=== PATIENT | female | born 1945 | race Hispanic/Latino ===

== ENCOUNTER 2017-08-15 08:16 | Inpatient (IN) | payer MEDICARE, BC ==
[2017-08-15 08:20] VITALS: BMI 18.3
[2017-08-15] MEDS ORDERED: Sodium Chloride 0.9% 1,000 ML IV STA ×3 (08:56→19:26)
[2017-08-15 09:36] LABS: BASO # 0.04 K/mm3 (0.0-2.0); BASO % 0.5 % (0.0-3.0); EOS # 0.1 (0.0-0.7); EOS % 0.8 % (1.5-5.0); GRAN # 5.88 (1.4-6.5); HEMATOCRIT 33.4 % (36.0-48.0); LYMPH # 1.8 (1.2-3.4); LYMPH % 20.9 % (22.0-35.0); MEAN CELL VOLUME 81.3 fl (80.0-105.0); MEAN CORPUSCULAR HGB CONC 33.2 g/dl (31.0-37.0); MEAN PLATELET VOLUME 10.4 fl (7.0-11.0); MONO # 0.9 (0.1-0.6); MONO % 9.8 % (1.0-6.0); RED CELL DISTRIBUTION WIDTH 15.6 % (11.5-14.5); WHITE BLOOD COUNT 8.7 10^3/ul (4.5-11.0)
[2017-08-15 09:46] LABS: ALB/GLOB RATIO 1.3 (1.1-1.8); ALKALINE PHOSPHATASE 123 U/L (38-126); ALT/SGPT 35 U/L (7-56); AST/SGOT 36 U/L (14-36); BILIRUBIN,TOTAL 0.3 mg/dL (0.2-1.3); BLOOD UREA NITROGEN 37 mg/dL (7-21); CARBON DIOXIDE 12 mmol/L (21-33); CHLORIDE 107 mmol/L (98-107); GFR AFRICAN-AMERICAN > 60; GLUCOSE,RANDOM 79 mg/dL (70-110); INR 1.12 (0.93-1.08); PARTIAL THROMBOPLASTIN TIME 27.8 Seconds (23.7-30.8); POTASSIUM 3.7 mmol/L (3.6-5.0); SODIUM 134 mmol/L (132-148); TOTAL PROTEIN 5.6 g/dL (5.8-8.3)
--- NOTE | 2017-08-15 09:50 | ED PDOC ---
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 Pt presented with n/v and diarrhea from cruise ship. States she has a hx of motion sickness and her n/v fully resolved on shore. Denies any diarrhea at this time. pt states she feels well and has no n/v/d or abd pain at this time. Denies any chest pain. Denies headache symptoms. Pt states that her symptoms were identical to previous motion symptoms she's had numerous times in the past. Past Medical History - Provider Review Nursing Documentation Reviewed: Yes - Infectious Disease Hx of Infectious Diseases: None - Neurological Other/Comment: Neuropathy - Hematological/Oncological Other/Comment: lymphedema - Integumentary Hx Squamous Cell Carcinoma: Yes - Musculoskeletal/Rheumatological Hx Falls: Yes - Gastrointestinal Hx Diarrhea: Yes Other/Comment: Bowel Obstruction Hx. Bowel Incontinence. TPN - Genitourinary/Gynecological Other/Comment: Pelvis CA Hx - Psychiatric Hx Substance Use: No - Surgical History Hx Tonsillectomy: Yes Other/Comment: Right Picc line. Radiation and Chemo Hx Family/Social History Family/Social History: Unknown Family HX Smoking Status: Never Smoked Hx Alcohol Use: No Hx Substance Use: No Allergies/Home Meds Allergies/Adverse Reactions: Allergies gabapentin Allergy (Verified 08/15/17 08:40) ANAPHYLAXIS Penicillins Allergy (Verified 08/15/17 08:40) RASH Narcotics Allergy (Uncoded 08/15/17 08:40) VOMITING Pt states she is allergic to all narcotics. Sulfa Allergy (Uncoded 08/15/17 08:40) URTICARIA Home Medications: Home Meds Medication Instructions Recorded Confirmed Famotidine [Pepcid] 20 mg PO DAILY 08/15/17 08/15/17 Ferrous Sulfate [Feosol] 325 mg PO DAILY 08/15/17 08/15/17 Levothyroxine [Synthroid] 25 mcg PO DAILY 08/15/17 08/15/17 Loperamide HCl [Loperamide HCl] 2 mg PO Q3 PRN 08/15/17 08/15/17 Ondansetron [Zofran] 8 mg PO Q6 PRN 08/15/17 08/15/17 Pantoprazole [Protonix EC Tab] 40 mg PO BID 08/15/17 08/15/17 Promethazine [Phenergan Tab] 25 mg PO Q6 PRN 08/15/17 08/15/17 Total Parental Nutrition [TPN 1,750 ml IV Q12 08/15/17 08/15/17 Fluid] Vitamin A 25,000 iu PO DAILY 08/15/17 08/15/17 Physical Exam - Physical Exam Narrative Physical Exam (Text): 08/15/17 09:50 - Review of Systems Constitutional: Normal. absent: Fatigue, Weight Change, Fevers Eyes: Normal ENT: denies sore throat, denies tristhmus Respiratory: Normal. absent: SOB, Cough, Sputum Cardiovascular: absent: Chest Pain, Palpitations, Syncope Gastrointestinal: Abdominal Pain, Diarrhea, Nausea, Vomiting - all resolved Genitourinary: Normal. absent: Dysuria, Frequency, Hematuria, vaginal bleeding Musculoskeletal: Normal. absent: Arthralgias, Back Pain, Neck Pain Skin: no rashes, no erythema Neurological: absent: Focal Weakness Endocrine: Normal Hemo/Lymphatic: Normal Psychiatric: No suicidal or homicidal ideations Physical exam Patient appears age appropriate in no distress, speaking full sentences without difficulty - Systems Exam Head: Present: Atraumatic, Normocephalic Pupils: Present: PERRL Extroacular Muscles: Present: EOMI Conjunctiva: Present: Normal Mouth: Present: Moist Mucous Membranes Neck: Present: Normal Range of Motion. No: MIDLINE TENDERNESS, Paraspinal Tenderness Respiratory/Chest: Present: Clear to Auscultation, Good Air Exchange. No: Respiratory Distress, Accessory Muscle Use, Tachypneic Cardiovascular: Present: Regular Rate and Rhythm, Normal S1, S2, Peripheal Pulses Present. No: Murmurs Abdomen: Present: Normal Bowel Sounds. No: Tenderness, Distention, Peritoneal Signs, Rebound, Guarding Back: Present: Normal Inspection. No: Midline Tenderness, Paraspinal Tenderness Upper Extremity: Present: Normal Inspection. No: Cyanosis, Edema Lower Extremity: Present: Normal Inspection. No: Edema Neurological: Present: GCS=15, Speech Normal, cranial nerves II through XII fully intact with no cerebellar abnormality, neurosensory fully intact. No focal neurological deficits. Skin: Present: Warm, Dry, Normal Color. No: Rashes Lymphatic: Present: OX3, NI, NC Psychiatric: Present: Alert, Oriented x 3, Normal Insight, Normal Concentration Vital Signs Reviewed: Yes Vital Signs Temp Pulse Resp BP Pulse Ox 08/15/17 12:13 97.9 F 77 17 109/62 96 08/15/17 08:20 97.6 F 88 18 116/66 100 Temperature: Afebrile Blood Pressure: Normal Pulse: Regular Respiratory Rate: Normal Appearance: Positive for: Well-Appearing Pain Distress: None Mental Status: Positive for: Alert and Oriented X 3 Medical Decision Making ED Course and Treatment: 08/15/17 09:51 Ship records reviewed: pt was found to be hypokalemic, KCl supplemented abd was tender, concern for bowel obstruction pt was tachy, refused EKG labs, imaging, ekg ordered EKG shows normal sinus 80bom, no st-elevations, normal intervals. Interpreted by me. abd soft/nt/nd with pos. bs in all 4 q's and no peritoneal signs pt has no focal neurological deficits denies any cp/sob/richter, states she never had those symptoms based on hx and pe, no suspicion for symptoms to be of cardiac etiology 08/15/17 14:[address]: Dictated by: Dr. Shonda Dao IMPRESSION: Acute small-bowel obstruction with transition zone likely in the distal ileal loops. No evidence of perforation or free fluid in the peritoneal cavity. 11 mm nonobstructing stone in the lower pole of the left kidney. 08/15/17 14:55 pt states she has no abd pain, no n/v, states she's had SBO in the past and this is not what her symptoms feel like asked not to have NTG inserted pt agreeable to admission to the hospital Dr. Cardenas bedside Dr. Corey redmond, awaiting callback 08/15/17 15:15 argenis Nicole, accepted pt to his service, Mary Jack and Ronald on consult pt aware of and agrees with plan Dr. Cardenas asked to start on clear liq. diet - Lab Interpretations Lab Results: 08/15/17 09:31 08/15/17 09:31 Lab Results 08/15/17 09:31: Sodium 134, Potassium 3.7, Chloride 107, Carbon Dioxide 12 L, Anion Gap 19, BUN 37 H, Creatinine 1.0, Est GFR ( Amer) > 60, Est GFR ( Non-Af Amer) 54, Random Glucose 79, Calcium 5.9 L*, Total Bilirubin 0.3, AST 36 , ALT 35, Alkaline Phosphatase 123, Total Protein 5.6 L, Albumin 3.2, Globulin 2.4, Albumin/Globulin Ratio 1.3 08/15/17 09:31: PT 12.1 H, INR 1.12 H, APTT 27.8 08/15/17 09:31: WBC 8.7, RBC 4.11, Hgb 11.1 L, Hct 33.4 L, MCV 81.3, MCH 27.0, MCHC 33.2, RDW 15.6 H, Plt Count 168, MPV 10.4, Gran % 68.0, Lymph % (Auto) 20.9 L, Terrell % (Auto) 9.8 H, Eos % (Auto) 0.8 L, Baso % (Auto) 0.5, Gran # 5.88 , Lymph # 1.8, Terrell # 0.9 H, Eos # 0.1, Baso # 0.04 I have reviewed the lab results: Yes - RAD Interpretation Radiology Orders: 08/15/17 08:54 ABDOMEN MULTIPLE VIEW (w/OBL) [RAD] Stat 08/15/17 12:46 ABD & PELVIS W/O PO OR IV CONT [CT] Stat - Medication Orders Current Medication Orders: Discontinued Medications Sodium Chloride (Sodium Chloride 0.9%) 1,000 mls @ 1,000 mls/hr IV .Q1H STA Stop: 08/15/17 09:55 Last Admin: 08/15/17 09:16 Dose: 1,000 mls/hr eMAR Start Stop Document 08/15/17 09:16 RR (Rec: 08/15/17 09:16 RR [id number]) Intravenous Solution Start Date 08/15/17 Start Time 09:16 End Date 08/15/17 End time 10:16 Total Infusion Time 60 Disposition/Present on Arrival - Present on Arrival Any Indicators Present on Arrival: No History of DVT/PE: No History of Uncontrolled Diabetes: No Urinary Catheter: No History of Decub. Ulcer: No History Surgical Site Infection Following: None - Disposition Have Diagnosis and Disposition been Completed?: Yes Diagnosis: Small bowel obstruction Disposition: HOSPITALIZED Disposition Time: 15:17 Patient Plan: Admission Condition: FAIR Forms: [employer] (Mal[place]ian)
[2017-08-15 09:53] LABS: CALCIUM 5.9 mg/dL (8.4-10.5)
--- NOTE | 2017-08-15 11:23 | RAD ---
HISTORY: abd pain, hx of ilius COMPARISON: No prior. FINDINGS: BOWEL: There is cases distension of the small bowel loops. Gas filled colon and rectum are normal in caliber. No free intraperitoneal air on left lateral decubitus film. BONES: There is an old deformity in the left hip. There is diffuse bone demineralization. OTHER FINDINGS: None. IMPRESSION: Gaseous distension of the small bowel. Findings could be related to ileus or obstruction. Follow-up is advised.
--- NOTE | 2017-08-15 14:23 | CT ---
PROCEDURE: CT Abdomen and Pelvis without intravenous contrast HISTORY: ro obastruction COMPARISON: None. TECHNIQUE: CT scan of the abdomen and pelvis was performed without administration of intravenous contrast. Oral contrast was not administered. Coronal and sagittal reformatted images were obtained. Radiation dose: Total exam DLP = 181.78 MGy-cm. This CT exam was performed using one or more of the following dose reduction techniques: Automated exposure control, adjustment of the mA and/or kV according to patient size, and/or use of iterative reconstruction technique. FINDINGS: LOWER THORAX: There are bullous changes in the right middle lobe. The lung bases are clear. LIVER: Normal in size. No gross lesion or ductal dilatation. GALLBLADDER AND BILE DUCTS: Surgically absent. PANCREAS: Mild diffuse atrophy. No gross lesion or ductal dilatation. SPLEEN: Normal in size. ADRENALS: No discrete nodule. KIDNEYS AND URETERS: There is mild cortical atrophy in the kidneys. There is a 11 mm nonobstructing stone in the left lower pole. VASCULATURE: No aortic aneurysm. BOWEL: There is severe dilatation of fluid-filled proximal and mid small bowel loops measuring up to 8 cm in transverse diameter. The distal small bowel loops are normal in caliber. The terminal ileum and ileocecal junction appear normal. However no definite transition zone is identified. The colon is unremarkable. APPENDIX: No inflammatory changes in the right lower quadrant pacs. PERITONEUM: No free fluid. No free air. LYMPH NODES: Unremarkable. BLADDER: Grossly normal in appearance. REPRODUCTIVE: Unremarkable. BONES: No acute fracture. Diffuse bone demineralization. OTHER FINDINGS: None. IMPRESSION: Acute small-bowel obstruction with transition zone likely in the distal ileal loops. No evidence of perforation or free fluid in the peritoneal cavity. 11 mm nonobstructing stone in the lower pole of the left kidney.
[2017-08-15 15:57] VITALS: RESP 18
--- NOTE | 2017-08-15 19:23 | CARD ---
APPROVED REPORT EKG Measurement Heart [id number] [id number] <Conclusion> Sinus rhythm with premature atrial complexes Inferior infarct, age undetermined Anterior infarct, age undetermined Abnormal ECG
--- NOTE | 2017-08-15 19:26 | CARD ---
APPROVED REPORT EKG Measurement Heart [id number] <Conclusion> Sinus rhythm with premature atrial complexes Inferior infarct, age undetermined Anterior infarct, age undetermined Abnormal ECG
--- NOTE | 2017-08-15 20:48 | CP.PCM.CON ---
History of Present Illness - History of Present Illness History of Present Illness: Surgery: Dr. Cardenas CC: Nausea / Vomiting / Diarrhea HPI: 72F w. hx of pelvic CA, radiation enteritis, SBOs, malnutrition requiring TPN, and motion sickness presents to ED from cruise ship with N/V/D. Pt states that she attributes her symptoms to motion sickness. Pt's symptoms completely resolved after arriving to shore. However, she states that the ship doctor recommended that she come to hospital for concerns of SBO given abd tenderness. In ED CT was done which showed dilated loops of bowel concerning for SBO. Pt is currently asymptomatic. She has no complaints of pain. She is tolerating diet, no N/V. She does have intermittent diarrhea, however she states that this is chronic. 12 ROS performed and negative unless specified PMH: osteoperosis, pelvic CA, SBOs, radiation enteritis, motion sickness PSH: gallbladder, tonsils Meds: MAR reviewed ALL: PCN, sulfa, narcotics, cipro, gabapentin Social: No Tobacco/drugs, social ETOH Fhx: Non-contributory Past Patient History - Infectious Disease Hx of Infectious Diseases: None - Past Social History Smoking Status: Never Smoked - CARDIAC Hx Cardiac Disorders: No - PULMONARY Hx Respiratory Disorders: No - NEUROLOGICAL Hx Neurological Disorder: No - HEENT Hx HEENT Problems: No - RENAL Hx Chronic Kidney Disease: No - ENDOCRINE/METABOLIC Hx Endocrine Disorders: No - HEMATOLOGICAL/ONCOLOGICAL Hx Cancer: Yes - INTEGUMENTARY Hx Dermatological Problems: No - MUSCULOSKELETAL/RHEUMATOLOGICAL Hx Musculoskeletal Disorders: No Hx Falls: No - GASTROINTESTINAL Hx Gastrointestinal Disorders: No - GENITOURINARY/GYNECOLOGICAL Hx Genitourinary Disorders: No - PSYCHIATRIC Hx Psychophysiologic Disorder: No - SURGICAL HISTORY Hx Surgeries: No Meds Allergies/Adverse Reactions: Allergies Allergy/AdvReac Type Severity Reaction Status Date / Time gabapentin Allergy ANAPHYLAXIS Verified 08/15/17 08:40 Penicillins Allergy RASH Verified 08/15/17 08:40 Narcotics Allergy VOMITING Uncoded 08/15/17 08:40 Sulfa Allergy URTICARIA Uncoded 08/15/17 08:40 - Medications Medications: Current Medications Calcium/Vitamin D (Oscal-D 250 Mg-125 Units Tab) 1 tab PO DAILY [facility] Famotidine (Pepcid) 20 mg PO DAILY [facility] Sodium Chloride (Sodium Chloride 0.9%) 1,000 mls @ 60 mls/hr IV .[id number] STA Stop: 08/16/17 07:56 Levothyroxine Sodium (Synthroid) 25 mcg PO DAILY [facility] Ondansetron HCl (Zofran Inj) 4 mg IVP Q4H PRN PRN Reason: Nausea/Vomiting Pantoprazole Sodium (Protonix Ec Tab) 40 mg PO BID [facility] Promethazine HCl (Phenergan Tab) 25 mg PO Q6 PRN PRN Reason: Nausea/Vomiting Physical Exam - Constitutional Appears: Non-toxic, No Acute Distress - Head Exam Head Exam: ATRAUMATIC, NORMOCEPHALIC - Eye Exam Eye Exam: EOMI. absent: Scleral icterus - ENT Exam ENT Exam: Mucous Membranes Moist, Normal External Ear Exam - Neck Exam Neck exam: Positive for: Full Rom - Respiratory Exam Respiratory Exam: NORMAL BREATHING PATTERN. absent: Accessory Muscle Use, Respiratory Distress - Cardiovascular Exam Cardiovascular Exam: REGULAR RHYTHM, +S1, +S2 - GI/Abdominal Exam GI & Abdominal Exam: Distended (lower abd), Soft. absent: Firm, Guarding, Rebound, Rigid, Tenderness - Extremities Exam Extremities exam: Negative for: calf tenderness, pedal edema - Neurological Exam Neurological exam: Alert, Oriented x3 - Psychiatric Exam Psychiatric exam: Normal Affect, Normal Mood - Skin Skin Exam: Dry, Normal Color, Warm Results - Vital Signs Recent Vital Signs: Last Vital Signs Temp 97.6 F 08/15/17 18:29 Pulse 64 08/15/17 18:29 Resp 18 08/15/17 18:29 BP 109/62 08/15/17 18:29 Pulse Ox 100 08/15/17 18:29 - Labs Result Diagrams: 08/15/17 09:31 08/15/17 09:31 - Imaging and Cardiology CT scan - abdomen Status: Image reviewed by me, Report reviewed by me Assessment & Plan - Assessment and Plan (Free Text) Assessment: 72F w. N/V/D likely 2/2 motion sickness, currently resolved, with CT findings concerning for SBO, asymptomatic -serial abd exams -advance diet as tolerated -no plans for surgical intervention -clear from surgical standpoint when regular diet tolerated -d/w attending Zetheronitis PGY3
[2017-08-15] MEDS: Pantoprazole 20 mg EC Tab PO SCH (22:13)
[2017-08-16 07:20] LABS: BASO # 0.03 K/mm3 (0.0-2.0); BASO % 0.5 % (0.0-3.0); EOS # 0.1 (0.0-0.7); EOS % 1.8 % (1.5-5.0); GRAN # 3.98 (1.4-6.5); GRAN % 71.9 % (50.0-68.0); LYMPH # 0.9 (1.2-3.4); LYMPH % 16.4 % (22.0-35.0); MEAN CELL VOLUME 81.4 fl (80.0-105.0); MEAN CORPUSCULAR HEMOGLOBIN 26.5 pg (25.0-35.0); MEAN CORPUSCULAR HGB CONC 32.5 g/dl (31.0-37.0); MEAN PLATELET VOLUME 9.6 fl (7.0-11.0); MONO # 0.5 (0.1-0.6); MONO % 9.4 % (1.0-6.0); RED CELL DISTRIBUTION WIDTH 15.6 % (11.5-14.5); WHITE BLOOD COUNT 5.5 10^3/ul (4.5-11.0)
[2017-08-16 07:36] LABS: ALB/GLOB RATIO 1.1 (1.1-1.8); ALKALINE PHOSPHATASE 101 U/L (38-126); ALT/SGPT 36 U/L (7-56); AST/SGOT 23 U/L (14-36); BILIRUBIN,TOTAL 0.1 mg/dL (0.2-1.3); BLOOD UREA NITROGEN 20 mg/dL (7-21); CARBON DIOXIDE 14 mmol/L (21-33); CHLORIDE 113 mmol/L (98-107); GFR AFRICAN-AMERICAN > 60; GLUCOSE,RANDOM 76 mg/dL (70-110); POTASSIUM 3.1 mmol/L (3.6-5.0); SODIUM 139 mmol/L (132-148); TOTAL PROTEIN 4.5 g/dL (5.8-8.3)
[2017-08-16 07:50] LABS: FREE T4 1.21 ng/dL (0.78-2.19)
--- NOTE | 2017-08-16 07:53 | CP.PCM.PN ---
Subjective - Date & Time of Evaluation Date of Evaluation: 08/16/17 Time of Evaluation: 07:48 - Subjective Subjective: Surgery: Dr. Cardenas Pt seen and examined. Resting comfortably in bed. Symptoms completely resolved. Pt eager to go home. Objective - Vital Signs/Intake and Output Vital Signs (last 24 hours): Temp Pulse Resp BP Pulse Ox 97.6 F 64 18 109/62 100 08/15/17 18:29 08/15/17 18:29 08/15/17 18:29 08/15/17 18:29 08/15/17 18:29 - Medications Medications: Current Medications Calcium/Vitamin D (Oscal-D 250 Mg-125 Units Tab) 1 tab PO DAILY [facility] Famotidine (Pepcid) 20 mg PO DAILY [facility] Sodium Chloride (Sodium Chloride 0.9%) 1,000 mls @ 60 mls/hr IV .[id number] STA Stop: 08/16/17 07:56 Levothyroxine Sodium (Synthroid) 25 mcg PO DAILY [facility] Ondansetron HCl (Zofran Inj) 4 mg IVP Q4H PRN PRN Reason: Nausea/Vomiting Pantoprazole Sodium (Protonix Ec Tab) 40 mg PO BID [facility] Last Admin: 08/15/17 22:13 Dose: 40 mg Promethazine HCl (Phenergan Tab) 25 mg PO Q6 PRN PRN Reason: Nausea/Vomiting - Labs Labs: 08/16/17 07:10 PT 12.1 Seconds (9.9-11.8) H 08/15/17 09:31 INR 1.12 (0.93-1.08) H 08/15/17 09:31 APTT 27.8 Seconds (23.7-30.8) 08/15/17 09:31 - Constitutional Appears: Non-toxic, No Acute Distress - Head Exam Head Exam: ATRAUMATIC, NORMOCEPHALIC - Eye Exam Eye Exam: EOMI. absent: Scleral icterus - ENT Exam ENT Exam: Mucous Membranes Moist - Neck Exam Neck Exam: Full ROM - Respiratory Exam Respiratory Exam: NORMAL BREATHING PATTERN. absent: Accessory Muscle Use, Respiratory Distress - GI/Abdominal Exam GI & Abdominal Exam: Soft. absent: Distended, Firm, Guarding, Rigid, Tenderness , Rebound - Extremities Exam Extremities Exam: absent: Calf Tenderness, Pedal Edema - Neurological Exam Neurological Exam: Alert, Awake, Oriented x3 - Psychiatric Exam Psychiatric exam: Normal Affect, Normal Mood - Skin Skin Exam: Dry, Normal Color, Warm Assessment and Plan - Assessment and Plan (Free Text) Assessment: 72F w. N/V/D 2/2 motion sickness, and CT concerning for SBO, symptoms completely resolved -Advance diet as tolerated -Pt clear for D/C from surgical standpoint when regular diet tolerated -will d/w attending Zemaitis PGY3
--- NOTE | 2017-08-16 08:03 | CP.PCM.CON ---
History of Present Illness - History of Present Illness History of Present Illness: Asked by Dr. Nicole for a GI consultation on this patient. 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 By the time patient arrived at hospital the majority of her symptoms had resolved. She is seen currently resting in bed and appears comfortable. She denies abdominal pain, nausea, recurrent vomiting, fever/chills, or weight loss. She has chronic diarrhea over the past several years which is controlled by Immodium. She has had 2 loose bowel movements since arrival to hospital. She follows with a GI physician in [place] where she lives and had an attempted colonoscopy in 2003 but was incomplete due to apparent sigmoid stricture. Social history: non-smoker, social ETOH use Family history: mother (colon cancer diagnosed age 73) Review of Systems - Review of Systems Review of Systems: - All other comprehensive 12 point review of systems performed, negative - Cardiovascular Cardiovascular: absent: Acrocyanosis, Chest Pain, Chest Pain at Rest, Chest Pain with Activity, Claudication, Diaphoresis, Dyspnea, Dyspnea on Exertion, Edema, Irregular Heart Rhythm, Pain Radiating to Arm/Neck/Jaw, Leg Edema, Leg Ulcers, Lightheadedness, Orthopnea, Palpitations, Paroxysmal Nocturnal Dyspnea, Pedal Edema, Radiating Pain, Rapid Heart Rate, Slow Heart Rate, Syncope, Other - Respiratory Respiratory: absent: Cough, Dyspnea, Hemoptysis, Dyspnea on Exertion, Wheezing, Snoring, Stridor, Pain on Inspiration, Chest Congestion, Excessive Mucous Production, Change in Mucous Color, Pain with Coughing, Other - Gastrointestinal Gastrointestinal: Diarrhea - Musculoskeletal Musculoskeletal: absent: Abnormal Gait, Arthralgias, Atrophy, Back Pain, Deformity, Joint Swelling, Limited Range of Motion, Loss of Height, Muscle Cramps, Muscle Weakness, Myalgias, Neck Pain, Numbness, Radiating Pain into Limb , Stiffness, Tingling, Other - Neurological Neurological: absent: Abnormal Gait, Abnormal Hearing, Abnormal Movements, Abnormal Speech, Behavioral Changes, Burning Sensations, Confusion, Convulsions , Disequilibrium, Dizziness, Numbness, Focal Weakness, Frequent Falls, Headaches , Lack of Coordination, Loss of Vision, Memory Loss, Paresthesias, Radicular Pain, Restless Legs, Sensory Deficit, Syncope, Tingling, Tremor, Vertigo, Weakness, Other Visual Disturbances, Other Past Patient History - Infectious Disease Hx of Infectious Diseases: None - Past Social History Smoking Status: Never Smoked - CARDIAC Hx Cardiac Disorders: No - PULMONARY Hx Respiratory Disorders: No - NEUROLOGICAL Hx Neurological Disorder: No - HEENT Hx HEENT Problems: No - RENAL Hx Chronic Kidney Disease: No - ENDOCRINE/METABOLIC Hx Endocrine Disorders: No - HEMATOLOGICAL/ONCOLOGICAL Hx Cancer: Yes - INTEGUMENTARY Hx Dermatological Problems: No - MUSCULOSKELETAL/RHEUMATOLOGICAL Hx Musculoskeletal Disorders: No Hx Falls: No - GASTROINTESTINAL Hx Gastrointestinal Disorders: No - GENITOURINARY/GYNECOLOGICAL Hx Genitourinary Disorders: No - PSYCHIATRIC Hx Psychophysiologic Disorder: No - SURGICAL HISTORY Hx Surgeries: No Meds Allergies/Adverse Reactions: Allergies Allergy/AdvReac Type Severity Reaction Status Date / Time gabapentin Allergy ANAPHYLAXIS Verified 08/15/17 08:40 Penicillins Allergy RASH Verified 08/15/17 08:40 Narcotics Allergy VOMITING Uncoded 08/15/17 08:40 Sulfa Allergy URTICARIA Uncoded 08/15/17 08:40 - Medications Medications: Current Medications Calcium/Vitamin D (Oscal-D 250 Mg-125 Units Tab) 1 tab PO DAILY [facility] Famotidine (Pepcid) 20 mg PO DAILY [facility] Sodium Chloride (Sodium Chloride 0.9%) 1,000 mls @ 60 mls/hr IV .[id number] STA Stop: 08/16/17 07:56 Levothyroxine Sodium (Synthroid) 25 mcg PO DAILY [facility] Ondansetron HCl (Zofran Inj) 4 mg IVP Q4H PRN PRN Reason: Nausea/Vomiting Pantoprazole Sodium (Protonix Ec Tab) 40 mg PO BID [facility] Last Admin: 08/15/17 22:13 Dose: 40 mg Promethazine HCl (Phenergan Tab) 25 mg PO Q6 PRN PRN Reason: Nausea/Vomiting Physical Exam - Constitutional Appears: Non-toxic, No Acute Distress - Head Exam Head Exam: NORMAL INSPECTION - Eye Exam Eye Exam: EOMI, Normal appearance - ENT Exam ENT Exam: Mucous Membranes Moist - Respiratory Exam Respiratory Exam: Clear to Auscultation Bilateral Additional comments: PICC line - Cardiovascular Exam Cardiovascular Exam: REGULAR RHYTHM, +S1, +S2 - GI/Abdominal Exam GI & Abdominal Exam: Normal Bowel Sounds, Soft Additional comments: non tender to palpation in four quadrants no palpable hepato/splenomegaly - Extremities Exam Extremities exam: Positive for: normal inspection - Neurological Exam Neurological exam: Alert, CN II-XII Intact, Oriented x3, Reflexes Normal - Psychiatric Exam Psychiatric exam: Normal Affect, Normal Mood - Skin Skin Exam: Dry, Intact, Normal Color, Warm Results - Vital Signs Recent Vital Signs: Last Vital Signs Temp 97.6 F 08/15/17 18:29 Pulse 64 08/15/17 18:29 Resp 18 08/15/17 18:29 BP 109/62 08/15/17 18:29 Pulse Ox 100 08/15/17 18:29 - Labs Result Diagrams: 08/16/17 07:10 08/15/17 09:31 Labs: Laboratory Results - last 24 hr 08/16/17 07:10 WBC 5.5 D RBC 3.44 L Hgb 9.1 L D Hct 28.0 L MCV 81.4 MCH 26.5 MCHC 32.5 RDW 15.6 H Plt Count 147 MPV 9.6 Gran % 71.9 H Lymph % (Auto) 16.4 L Wells % (Auto) 9.4 H Eos % (Auto) 1.8 Baso % (Auto) 0.5 Gran # 3.98 Lymph # 0.9 L Wells # 0.5 Eos # 0.1 Baso # 0.03 Assessment & Plan - Assessment and Plan (Free Text) Assessment: History of radiation enteritis, on chronic TPN History of SBO History of pelvic squamous cell cancer Nausea, vomiting CT imaging reviewed by me showing features suggestive of SBO with transition point in distal small bowel (ileum) Plan: - Patient with radiographic findings suggestive of acute SBO, though clinically patient does not have obstructive features. She is no longer vomiting and is having bowel movements. - Full liquid diet as tolerated - Follow up surgical recommendations regarding diet advancement - Continue with IVF hydration, supportive care - Anti-emetic therapy PRN - Will continue to monitor patient clinical course
[2017-08-16 08:04] LABS: THYROID STIMULATING HORMONE 0.85 mIU/mL (0.46-4.68)
[2017-08-16 08:12] VITALS: BP 96/49; PULSE 65; TEMP 97.7; O2SAT 99
[2017-08-16 08:16] LABS: CALCIUM 5.8 mg/dL (8.4-10.5)
[2017-08-16] MEDS: Pantoprazole 20 mg EC Tab PO SCH (09:41)
[2017-08-16] MEDS ORDERED: Levothyroxine 25 MCG TAB PO SCH (10:00)
[2017-08-16] MEDS ORDERED: Calcium-Vit D 250 mg-125 Units Tab UD PO SCH (10:00)
[2017-08-16] MEDS ORDERED: Potassium Chloride 20 mEq ER Tab PO STA (10:01)
--- NOTE | 2017-08-16 14:37 | HP ---
HISTORY OF PRESENT ILLNESS: I saw in her in her room in [facility]. She comes in with a history from a cruise ship of having abdominal pain. She was in the cruise ship hospital area for a while. She is a 72-year-old female with history of cancer, history of malnutrition, radiation gastritis, dehydration, TPN feeds via her PICC line. The patient presents with nausea, vomiting, diarrhea from her cruise ship. History of motion sickness. Her nausea and vomiting are fully resolved, unsure. No diarrhea. She is doing pretty well small bowel obstruction. She has a history of neuropathy, lymphedema, squamous cell carcinoma, history of falls, bowel obstruction, history of bowel incontinence. She is on TPN. Pelvis cancer history. She has a right PICC line. Radiation and chemotherapy history. FAMILY HISTORY: Unknown family history. SOCIAL HISTORY: Never smoked or alcohol. No drugs. ALLERGIES: SHE IS ALLERGIC TO GABAPENTIN, PENICILLIN, NARCOTICS, AND SULFA. MEDICATIONS: She is on Pepcid, Feosol, Synthroid, loperamide, Zofran, Protonix, Phenergan, fish oil nutrition, also vitamin A. REVIEW OF SYSTEMS: She is a little bit fatigued. Although concerned about her nauseousness, she is feeling better. No acute vision or hearing changes. No sore throat, nothing new. No shortness of breath, cough or sputum. No chest pain, palpitation or dizziness. She says her abdominal pain, diarrhea, nausea, vomiting for the most part doing much better now. No problems urinating. No back pain or neck pain. No focal weakness. No sweats. No anxiety. No suicidal or homicidal ideation. PHYSICAL EXAMINATION: VITAL SIGNS: She has 97.9 temperature, 77 pulse, 17 respiratory rate, 109/62 blood pressure and 96-100 oxygen saturation. GENERAL: She is currently moving her bowel, doing better, she is feeling less pain in her tummy. She talks well. She understands her condition. HEENT: Head is atraumatic and normocephalic. Extraocular muscles are intact. Pupils are equally reactive to light and accommodation. Throat is moist. NECK: Supple. HEART: Regular rate. Normal S1 and S2. LUNGS: Decreased breath sounds, but clear to auscultation. ABDOMEN: Soft and nontender. Positive bowel sounds. No guarding. No rebound. No CVA tenderness. EXTREMITIES: No edema of the extremities. NEUROLOGIC: GCS of 15. Speech is normal. Cranial nerves II through XII grossly intact. SKIN: Warm and dry. No rashes. Alert and oriented x3. NECK: Thyroid is midline. No palpable or appreciable lymphadenopathy. Feeling better. No nausea or vomiting and moving her bowels. She had some tests in the ER. She had an abdomen and pelvis CAT scan. She had an EKG, which showed sinus rhythm, inferior infarct and anterior infarct, age undetermined. She has acute small bowel obstruction with transition zone likely in the distal ileal loops. No evidence of perforation. She has a consult with Surgery and Gastroenterology. She will be on IV fluids since she is moving bowels. No nausea or vomiting. We will put her on clear fluids. She will be back on her regular medications. If she does well tomorrow and no nausea and vomiting and she can walk okay, we will discharge her to her outpatient medications. Could all be from motion sickness on the boat. She is here for small bowel obstruction, nausea and vomiting. Gadiel Nicole DO MTDD
--- NOTE | 2017-08-17 02:34 | DS ---
HISTORY OF PRESENT ILLNESS: I saw her resting comfortably in bed. She is eating full diet and she is having no more diarrhea and moving normal bowel movement. No more abdominal pain and in good spirits. She was in for small bowel obstruction. She has a history of low potassium and low calcium, she is on her own medication for that. She was here with calcium and potassium replacement. She has a history of hypothyroidism, status post colon cancer and resection, radiation gastritis, and she is doing much better. We are going to discharge her back to [place]. She is from a cruise ship. She is in good spirits. She is happy to leave. She has no complaints. She is eating, she is moving and she is getting up out of bed. PHYSICAL EXAMINATION: VITAL SIGNS: She has 97.7 temperature, 65 pulse, 96/49 blood pressure, 18 respiratory rate and 99% O2 sat on room air. HEENT: Head is atraumatic, normocephalic. Throat is moist. NECK: : Supple. HEART: Regular rate. LUNGS: Clear to auscultation. ABDOMEN: Soft and nontender. Positive bowel sounds. No guarding. No rebound. No CVA tenderness. EXTREMITIES: No edema. She is going to go on her regular medications she takes at home. LABORATORY DATA: She had 139 sodium and potassium 3.1. We replaced potassium this morning. BUN 20 and creatinine 0.7. GFR is greater than 60. Sugar 76. Calcium is 5.8. We gave her calcium here. She also has a calcium spray that works very well for her. She tells me she will take that as soon as she gets from pharmacy. AST is 23, ALT is 36, alkaline phosphatase is 101, and total protein is 4.5. TSH is 0.85 and 1.1.12 is INR. She has 5.5 white count, 9.1 hemoglobin, 20 hematocrit with 147 platelets. Overall, she is great. I discussed this with GI and Surgery. They said she can be discharged to home on her regular medications that she takes at home. She will follow up tomorrow with her primary care doctor. This is a discharge summary on Carol Fry, who had small bowel obstruction, diarrhea, and nauseousness after being in the cruise ship and she improved. Gadiel Nicole DO
== END 2017-08-16 16:57 | disposition home or self-care (01) | DRG 389 ==
LOC: ED 08:16 → ERH 15:17 → 3RSO 16:24
PROVIDERS: ADMIT Family Medicine; ATTEND Family Medicine
DX: K56.60 Unspecified intestinal obstruction (principal); E46 Unspecified protein-calorie malnutrition; C79.89 Secondary malignant neoplasm of other specified sites; G62.9 Polyneuropathy, unspecified; E86.0 Dehydration; E83.51 Hypocalcemia; E87.6 Hypokalemia; T75.3XXA Motion sickness, initial encounter; K52.9 Noninfective gastroenteritis and colitis, unspecified; M81.0 Age-related osteoporosis without current pathological fracture; E03.9 Hypothyroidism, unspecified; Z85.038 Personal history of other malignant neoplasm of large intestine; Z92.21 Personal history of antineoplastic chemotherapy; Z92.3 Personal history of irradiation; Z91.81 History of falling; Z88.5 Allergy status to narcotic agent; Z88.0 Allergy status to penicillin; Z88.2 Allergy status to sulfonamides; Z88.8 Allergy status to other drugs, medicaments and biological substances